=== PATIENT | female | born 1980 | race Caucasian/White ===

== ENCOUNTER 2019-06-14 11:27 | Inpatient (IN) | payer OTHER ==
[~2019-06-14] VITALS: Ht 160 cm; Wt 80.6 kg
[~2019-06-14 11:27] MED LIST: BISA-57 PO; HYDR-3601 PO; LEVO750T25 PO; PANT40TA4 PO
[2019-06-14 11:34] VITALS: Ht 160 cm; Wt 80.6 kg
[2019-06-14] MEDS ORDERED: KETOROLAC 15 MG INJ IV STA (13:18)
[2019-06-14] MEDS ORDERED: SOD CHLORIDE 0.9% 1,000 ML IV STA (13:18)
[2019-06-14] MEDS ORDERED: DOXYCYCLINE 100 MG TAB PO ONE (13:30)
--- NOTE | 2019-06-14 16:59 | QN ---
Documentation Comment pt seem amd examined TOMÁS CASTRO MD Jun 14, 2019 16:59
--- NOTE | 2019-06-14 17:10 | ERD ---
ER Documentation Chief Complaint Chief Complaint left sided flank pain at nephrostomy tube site. placement was may 22 HPI This is a 38-year-old woman complaining of continued left flank and back pain status post left nephrostomy tube placement performed 3 weeks ago at [facility]. At that time she was diagnosed with a very large left ureter calculus causing hydronephrosis and urinary obstruction. She was admitted and nephrostomy tube was placed and patient was discharged with analgesics and oral antibiotics, but since discharge she has been back again for flank pain and was discharged from the ER after that visit. She states she used her antibiotics as prescribed but got a call yesterday telling her that her urine cultures revealed multiple resistances and that she should be prescribed doxycycline. She came here for reevaluation and a prescription for doxycycline. Patient denies fevers or chills, no vomiting or diarrhea, no chest pain or shortness of breath, no hematuria. ROS All systems reviewed and are negative except as per history of present illness. Medications Home Meds No Active Prescriptions or Reported Meds Allergies Allergies: Coded Allergies: No Known Drug Allergies (Unverified Allergy, Unknown, 06/14/19) PMhx/Soc Recent left ureter calculus with hydronephrosis status post left nephrostomy tube placement History of Surgery: Yes (NEPHROSTOMY DRAIN) Anesthesia Reaction: No Hx Neurological Disorder: No Hx Respiratory Disorders: No Hx Cardiac Disorders: No Hx Psychiatric Problems: No Hx Miscellaneous Medical Probl: Yes (KIDNEY STONES) Hx Alcohol Use: No Hx Substance Use: No Hx Tobacco Use: No Smoking Status: Never smoker FmHx Family History: No diabetes Physical Exam Vitals Vital Signs Date Temp Pulse Resp B/P (MAP) Pulse Ox O2 O2 Flow FiO2 Time Delivery Rate 06/14/19 74 16 129/82 98 Room Air 15:54 (98) 06/14/19 98.0 83 83 141/92 99 11:34 (108) Physical Exam GENERAL: Well-developed, well-nourished, well-hydrated, moderate discomfort, afebrile CARDIAC: Regular rate and rhythm, no murmurs rubs or gallops LUNGS: Clear bilaterally no wheezing crackles or stridor ABDOMEN: Soft nontender, no guarding, no rigidity, no rebound, no psoas sign no obturator sign. Normoactive bowel sounds SKIN: Warm and dry to touch, granulation tissue present at the left flank stoma where the nephrostomy tube is placed with mild purulent discharge, no surrounding skin induration or erythema noted EXTREMITIES: No clubbing cyanosis or edema, calves are bilaterally symmetrical, no Homans sign, no popliteal cord sign. Distal pulses equal and bilateral PSYCH: Normal affect without agitation or irritability Result Diagram: 06/14/19 1332 06/14/19 1332 Results 24 hrs Laboratory Tests Test 06/14/19 13:32 06/14/19 13:34 06/14/19 13:45 06/14/19 13:47 White Blood Count 7.4 10^3/ul Red Blood Count 4.61 10^6/ul Hemoglobin 13.5 g/dl Hematocrit 40.5 % Mean Corpuscular 87.9 fl Volume Mean Corpuscular 29.3 pg Hemoglobin Mean Corpuscular 33.3 g/dl Hemoglobin Concent Red Cell 12.4 % Distribution Width Platelet Count 315 10^3/UL Mean Platelet 9.7 fl Volume Immature 0.300 % Granulocytes % Neutrophils % 59.7 % Lymphocytes % 31.2 % Monocytes % 7.2 % Eosinophils % 1.1 % Basophils % 0.5 % Nucleated Red Blood 0.0 /100WBC Cells % Immature 0.020 10^3/ul Granulocytes # Neutrophils # 4.4 10^3/ul Lymphocytes # 2.3 10^3/ul Monocytes # 0.5 10^3/ul Eosinophils # 0.1 10^3/ul Basophils # 0.0 10^3/ul Nucleated Red Blood 0.0 10^3/ul Cells # Sodium Level 138 mmol/L Potassium Level 3.8 mmol/L Chloride Level 104 mmol/L Carbon Dioxide 28 mmol/L Level Anion Gap 6 Blood Urea Nitrogen 13 mg/dl Creatinine 0.72 mg/dl Est Glomerular > 60 mL/min Filtrat Rate mL/min Glucose Level 91 mg/dl Calcium Level 9.4 mg/dl Total Bilirubin 0.3 mg/dl Direct Bilirubin 0.00 mg/dl Indirect Bilirubin 0.3 mg/dl Aspartate Amino 18 IU/L Transf (AST/SGOT) Alanine 19 IU/L Aminotransferase (A LT/SGPT) Alkaline 73 IU/L Phosphatase Total Protein 8.3 g/dl Albumin 4.5 g/dl Globulin 3.80 g/dl Albumin/Globulin 1.18 Ratio Lipase 78 U/L POC Venous Lactate 1.1 mmol/L Urine Color YELLOW Urine Clarity CLOUDY Urine pH 9.0 Urine Specific 1.010 Coleman Urine Ketones NEGATIVE mg/dL Urine Nitrite NEGATIVE mg/dL Urine Bilirubin NEGATIVE mg/dL Urine Urobilinogen NEGATIVE mg/dL Urine Leukocyte 1+ Curt/ul Esterase Urine Microscopic 17 /HPF RBC Urine Microscopic 11 /HPF WBC Urine Bacteria FEW /HPF Urine Mucus FEW /HPF Urine Hemoglobin 1+ mg/dL Urine Glucose NEGATIVE mg/dL Urine Total Protein 1+ mg/dl POC Beta HCG, NEGATIVE Qualitative Current Medications Medications Dose Sig/Jake Start Time Status Last (Trade) Ordered Route PRN Stop Time Admin Dose Reason Admin Sodium 1,000 ml @ Q1H STAT 06/14/19 DC 06/14/19 Chloride 1,000 mls/hr IV 13:18 06/14/19 13:54 14:17 Ketorolac 15 mg ONCE STAT 06/14/19 DC 06/14/19 Tromethamine IV 13:18 06/14/19 13:54 (Toradol) 13:20 Doxycycline 100 mg ONCE ONCE 06/14/19 DC 06/14/19 Hyclate PO 13:30 06/14/19 14:28 (Vibramycin) 13:31 Procedures/MDM IV line was established patient was placed on director index rhythm strip revea led a sinus rhythm at about 80 bpm with upright P and T waves. Patient was afebrile I administered 1 L normal saline IV, Toradol 15 mg IV, doxycycline 100 mg p.o. x1. CBC and electrolytes were normal, liver function tests were normal, urinalysis positive for infection. CT scan of the abdomen pelvis was performed,IMPRESSION: 1. A left nephrostomy tube is in place. There is a 0.9 x 1.5 cm calculus within the left proximal ureter at the UPJ measuring 500 HU. 2. Punctate nonobstructing calculi within the upper pole of the right kidney. X-ray Abdomen 1V Interpreted by me: Free Air: None Bowel Gas: Nonspecific Soft Tissue: Normal, left nephrostomy tube in place I spoke to urologist on-call who recommended inpatient management and agreed to ER plan, he agreed to consult the patient. Patient admitted to [facility] Departure Diagnosis: Primary Impression: Urinary obstruction Additional Impressions: Ureterolithiasis Acute UTI Condition: CARMEN Valencia MD Jun 14, 2019 17:10
[2019-06-14] MEDS: KETOROLAC 15 MG INJ IV PRN (17:22)
[2019-06-14] MEDS ORDERED: VANCOMYCIN IV PER PHARMACY XX SCH (17:30)
[2019-06-14] MEDS ORDERED: NACL 0.9% 3 ML SYG IV SCH (17:30)
[2019-06-14] MEDS ORDERED: ONDANSETRON 4 MG INJ IV PRN (17:30)
[2019-06-14] MEDS ORDERED: ACETAMINOPHEN 325 MG TAB PO PRN (17:30)
[2019-06-14] MEDS ORDERED: VANCOMYCIN 1.5 GM/NS 250 ML 250 ML IVPB SCH ×2 (18:30→20:00)
--- NOTE | 2019-06-14 18:34 | HP ---
DATE OF ADMISSION: 06/14/2019 REASON FOR ADMISSION: Left flank pain and left anterior abdominal pain. HISTORY OF PRESENTING ILLNESS: This is a 38-year-old female with past medical history of kidney ston es. The patient has history of hydronephrosis and left calculus which was 16 mm. The patient was se en at [facility] in 05/2019. At that time, the patient was seen by Dr. Mix and had lef t nephrostomy tube placed with stent tube placement. The patient was growing Proteus mirabilis in th e urine and was discharged home with Bactrim; however according to the patient since the discharge fr [facility], she has followed for different hospitals. She was having persistent lower ab dominal pain and also left flank pain. She was having intermittent chills at home. Tubing of the ne phrostomy tube was broken and they also called her from [facility] today that she has staph in her ur ine and was told to come into ER for further evaluation. The patient said that she was declined admi ssions to other hospitals since she did not have any insurance. On arrival to ED, the patient had a temperature of 98.0, pulse 74, respirations 16, blood pressure 129/82, saturating 98%. BUN and creat inine are within normal limit. White count of 7.4, hemoglobin 13.5, platelet count of 315. UA showe d 17 RBCs, 11 WBCs, few bacteria, 1+ protein. The patient also had a CT of the abdomen and pelvis th at showed left nephrostomy tube with 0.9 x 1.5 cm calculus with left proximal ureter measuring 500 pu nctuate nonobstructing calculi. Abdominal x-ray shows no free air, left upper quadrant catheter in p lace, probably overlying the left kidney. The patient was given Toradol, NS, Vibramycin and urology was consulted. PAST MEDICAL HISTORY: 1. History of kidney stones with history of left hydronephrosis and left 16 mm stone, status post ne phrostomy and stent placement. 2. History of Proteus UTI. ALLERGIES: NONE. MEDICATIONS TAKING AT HOME: None. SOCIAL HISTORY: Denies any history of smoking, alcohol or any drug use. FAMILY HISTORY: Noncontributory. REVIEW OF SYSTEMS: The patient has been having left flank pain for past few weeks, also some left an terior lower abdominal pain, some intermittent chills. Denies any hematuria. Drainage through the n ephrostomy is less and it has been cloudy. Denies any right-sided flank pain. Denies any chest pain , any shortness of breath. Denies any headache, any blurry vision. Denies any focal neurological de ficits. PHYSICAL EXAMINATION: VITAL SIGNS: Current temperature 98.0, pulse 83, respirations 16, blood pressure 141/92, saturating 99%. GENERAL: The patient is awake, alert, oriented, does not appear to be in any acute distress. HEENT: Pupils are equal, round, reactive to light. NECK: Supple. No JVD. HEART: Regular rate and rhythm. LUNGS: Clear to auscultation bilaterally. ABDOMEN: Soft. Some tenderness in the left lower quadrant. The patient has left flank tenderness. Nephrostomy bag in place with tubing part is broken. Some purulent discharge is noted in the nephrostomy tube. LABORATORY DATA: BMP within normal limit with BUN of 13, creatinine 0.72. White count of 7.4, hemog lobin 13.5, platelet count of 315. UA shows 11 WBC, 17 RBCs. IMAGING: CT of the abdomen and pelvis shows left nephrostomy tube in place with 0.9 x 1.5 cm calculu s at the left proximal ureter at the UPJ junction, punctate nonobstructing calculi with the upper martin e of the right kidney. ASSESSMENT AND PLAN: This is a 38-year-old female who presented with: 1. Recurrent urinary tract infection. The patient has history of hydronephrosis on the left side, s tatus post nephrostomy tube placement and stent in place. New UA is consistent with urinary tract in fection and the patient also was growing Staph in the urine from [facility] concerning for i nfection. 2. History of kidney stones. 3. Right side kidney stone. 4. Obesity. PLAN: At this period of time, the patient will be admitted to med/surg. The patient will be on pain control, IV antibiotics. We will also her vancomycin due to staph. We will send for urine culture, blood cultures. Again, ID will be consulted. Dr. Mosley has already been consulted. The patient w ill likely need new nephrostomy. Rest of the treatment will depend on the patient's hospitalization course. Dictated By: TOMÁS BLANTON Conf#: [id number] [facility]#: [id number] CC: BRANDEN MOSLEY MD; CARMEN VASQUEZ MD;*[facility]*
[2019-06-14 19:00] VITALS: BP 119/64; PULSE 66; RESP 16
--- NOTE | 2019-06-14 19:37 | CONS ---
DATE OF ADMISSION: 06/14/2019 DATE OF CONSULTATION: 06/14/2019 TYPE OF CONSULTATION: Infectious disease. REASON FOR CONSULTATION: Antibiotic management. HISTORY OF PRESENT ILLNESS: Kelly Mann is a 38-year-old female who comes in with left flank verona n in the nephrostomy tube site which was placed on 05/22/2019. The patient complains of left flank a nd back pain status post left nephrostomy tube placement performed at [facility] on 05/22/20 19. She was discharged with a very large left ureteral calculus causing hydronephrosis and urinary o bstruction. Since her discharge, she has been back again for flank pain and was discharged from the ER as well. She got a call from her physician telling her that her urine culture revealed multiple r esistant organisms and that she should be prescribed doxycycline. She came to the emergency room for reevaluation and a prescription for doxycycline. She has no fever or chills. PAST MEDICAL HISTORY: As noted, recent left ureteral calculus with hydronephrosis, status post left nephrostomy tube placement. PAST MEDICAL HISTORY: As outlined. FAMILY HISTORY: Noncontributory. SOCIAL HISTORY: She does not smoke, drink or abuse drugs. ALLERGIES: NONE TO PENICILLIN, SULFA OR FOODS. MEDICATIONS: Per chart. REVIEW OF SYSTEMS: Noncontributory. PHYSICAL EXAMINATION: GENERAL: She is a well-developed, well-nourished, well-hydrated female who is moderately uncomfortab le, in no acute distress. VITAL SIGNS: Stable. She is afebrile. SKIN: Without generalized rash. She is warm to the touch. HEENT: Within normal limits. NECK: Supple. LYMPH NODES: None palpable. CHEST: Decreased breath sounds at the bases. HEART: Without murmur or gallop. ABDOMEN: Soft, nontender, without organosplenomegaly or masses. She has granulation tissue at the l eft flank stoma where the nephrostomy tube is located with mild purulent drainage or discharge. She has no skin or induration or erythema. EXTREMITIES: Without cyanosis, clubbing or edema. RECTAL AND GENITAL: Deferred. NEUROLOGICAL: No focal neurological abnormality. HOSPITAL COURSE: White count 7.4 with 60% neutrophils, H and H 13.5 and 40.5, platelet count 315,000 . BUN and creatinine 13/0.72, glucose 91. Her urine is negative for nitrite, has 1+ leukocyte hang ase and 11 white cells per high-power field. The patient was placed on doxycycline. CT scan of the abdomen showed left nephrostomy tube in place, calculus in place. X-ray of the abdomen is normal wit h left nephrostomy tube in place. IMPRESSION AND PLAN: In conclusion, the patient has urinary obstruction. We should probably repeat urine culture if not done. The patient was placed on doxycycline. Blood cultures and urine cultures were ordered. I will dictate my findings to Dr. Castro. Dictated By: CRESCENCIO HENNESSY MD, JD/NTS Conf#: [id number] DID#: [id number] CC: TOMÁS CASTRO; BRANDEN MOSLEY MD;*[facility]*
--- NOTE | 2019-06-14 20:35 | CONS ---
Assessment/Plan Assessment/Plan Hospital Course (Demo Recall) This is a 38-year-old female who presented to [facility] on May 22 with left flank pain underwent a CT scan and that showed a 16 mm obstructing stone in the proximal left ureter causing mild left hydronephrosis the patient had a left nephrostomy tube put in and patient was discharged home and instructed to follow-up with her primary care doctor who will refer her to a urologist the patient came back to the emergency room later on at [facility] because the bag from the nephrostomy was leaking and they told her the x-ray department is closed so she went home she presented to the emergency room at [facility] today and she was told by the staff at [facility] that they received a urine culture on her and that she needs to be placed on doxycycline and therefore she came in to the emergency room at [facility] the patient is very uncomfortable with the nephrostomy tube and upon admission here as she underwent the CT scan again and that showed a stone in the upper ureter about 16 mm and a left nephrostomy tube in place. Patient s tates that she did have kidney stones in the past and she passed them but she never recovered them and she did not have a CT scan at that time and what they did was a renal ultrasound which could very easily miss a stone in the ureter. It will only show stones in the kidney. CT scan done here today showed a 9 x 16 mm stone in the proximal left ureter in addition to the left nephrostomy tube. Impression: Large left upper ureteral stone with obstruction. Patient does have a left nephrostomy tube. Plan: We will try to do cystoscopy, left ureteroscopy, if we are able to reach the stone we will do laser lithotripsy and then insert a JJ stent. The stone is too large and may need more than one treatment. We will put a stent at the end and may remove the nephrostomy tube after that. I did explain all the procedure to the patient and to her boyfriend who was at her bedside in the emergency r oom. I answered all of their questions and she is agreeable to proceed Consultation Date/Type/Reason Admit Date/Time Jun 14, 2019 at 15:19 Date of Consultation: Jun 14, 2019 Type of Consult Urology Reason for Consultation Left upper ureteral stone Requesting Provider: BRITNEY JOHNSON Date/Time of Note DATE: 06/14/19 TIME: 20:23 Hx of Present Illness This is a 38-year-old female who presented to [facility] on May 22 with left flank pain underwent a CT scan and that showed a 16 mm obstructing stone in the proximal left ureter causing mild left hydronephrosis the patient had a left nephrostomy tube put in and patient was discharged home and instructed to follow-up with her primary care doctor who will refer her to a urologist the patient came back to the emergency room later on at [facility] because the bag from the nephrostomy was leaking and they told her the x-ray department is closed so she went home she presented to the emergency room at [facility] today and she was told by the staff at [facility] that they received a urine culture on her and that she needs to be placed on doxycycline and therefore she came in to the emergency room at [facility] the patient is very uncomfortable with the nephrostomy tube and upon admission here as she underwent the CT scan again and that showed a stone in the upper ureter about 16 mm and a left nephrostomy tube in place. Patient states that she did have kidney stones in the past and she passed them but she never recovered them and she did not have a CT scan at that time and what they did was a renal ultrasound which could very easily miss a stone in the ureter. It will only show stones in the kidney. Constitutional: no complaints Eyes: no complaints ENT: no complaints Respiratory: no complaints; No shortness of breath Cardiovascular: no complaints; No chest pain Gastrointestinal: no complaints; No nausea, No vomiting Genitourinary: dysuria, flank pain (Left side) Musculoskeletal: no complaints Skin: no complaints Neurologic: no complaints Endocrine: no complaints Lymphatic: no complaints Past Medical History Medical History: no pertinent history Home Meds No Active Prescriptions or Reported Meds Medications Current Medications Sodium Chloride 1,000 ml @ 100 mls/hr Q10H IV ; Start 06/14/19 at 17:05 IV Flush (NS 3 ml) 3 ml PER PROTOCOL IV ; Start 06/14/19 at 17:30 Ondansetron HCl (Zofran Inj) 4 mg Q6H PRN IV NAUSEA/VOMITING; Start 06/14/19 at 17:30 Acetaminophen (Tylenol Tab) 650 mg Q6H PRN PO .PAIN 1-3 OR TEMP; Start 06/14/19 at 17:30 Acetaminophen/ Hydrocodone Bitart (Almira (5/325)) 1 tab Q6H PRN PO .MOD PAIN 4- 6; Start 06/14/19 at 17:30 Pantoprazole (Protonix Tab) 40 mg DAILY@06 PO ; Start 06/15/19 at 06:00 Ketorolac Tromethamine (Toradol) 15 mg Q6 PRN IV PAIN Last administered on 06/14/19at 17:22; Admin Dose 15 MG; Start 06/14/19 at 17:30; Stop 06/17/19 at 17:29 Cefepime HCl 50 ml @ 100 mls/hr Q12 IVPB ; Start 06/14/19 at 21:00 Vancomycin HCl (Vanco Iv Per Pharmacy) VANCOMYCIN PER PHARMACY PER PROTOCOL XX ; Start 06/14/19 at 17:30 Vancomycin/Sodium Chloride 250 ml @ 83.333 mls/ hr NOW IVPB ; Start 06/14/19 at 20:00; Stop 06/14/19 at 23:00 Allergies: Coded Allergies: No Known Drug Allergies (Unverified Allergy, Unknown, 06/14/19) Past Surgical History Past Surgical Hx: other (Surgery for retinal detachment, breast implants which were later on removed, tummy tuck, tubal ligation.) Social History Alcohol Use: occasionally Smoking Status: Never smoker Drug Use: none Other Social History She is a 4, para 3, 3 normal deliveries and 1 . Exam/Review of Systems Exam Vitals Vital Signs Date Temp Pulse Resp B/P (MAP) Pulse Ox O2 O2 Flow FiO2 Time Delivery Rate 06/14/19 98.0 66 16 119/64 98 Room Air 19:00 (82) Constitutional: alert Psych: no complaints Head: normocephalic Eyes: nl conjunctiva ENMT: nl external ears & nose Neck: supple Respiratory: normal air movement; No wheezing Cardiovascular: No jugular venous distention (JVD) Gastrointestinal: soft, surgical scars Genitourinary - Female: CVA tenderness (Left side. She does have left nephrostomy tube.) Musculoskeletal: nl extremities to inspection Extremities: No calf tenderness Neurological: nl mental status Skin: other (Has tattoos) Results Result Diagram: 06/14/19 1332 06/14/19 1332 Results 24hrs Laboratory Tests Test 06/14/19 13:32 06/14/19 13:34 06/14/19 13:45 06/14/19 13:47 White Blood Count 7.4 Red Blood Count 4.61 Hemoglobin 13.5 Hematocrit 40.5 Mean Corpuscular Volume 87.9 Mean Corpuscular 29.3 Hemoglobin Mean Corpuscular 33.3 Hemoglobin Concent Red Cell Distribution 12.4 Width Platelet Count 315 Mean Platelet Volume 9.7 Immature Granulocytes % 0.300 Neutrophils % 59.7 Lymphocytes % 31.2 Monocytes % 7.2 Eosinophils % 1.1 Basophils % 0.5 Nucleated Red Blood 0.0 Cells % Immature Granulocytes # 0.020 Neutrophils # 4.4 Lymphocytes # 2.3 Monocytes # 0.5 Eosinophils # 0.1 Basophils # 0.0 Nucleated Red Blood 0.0 Cells # Sodium Level 138 Potassium Level 3.8 Chloride Level 104 Carbon Dioxide Level 28 Anion Gap 6 Blood Urea Nitrogen 13 Creatinine 0.72 Est Glomerular Filtrat > 60 Rate mL/min Glucose Level 91 Calcium Level 9.4 Total Bilirubin 0.3 Direct Bilirubin 0.00 Indirect Bilirubin 0.3 Aspartate Amino 18 Transf (AST/SGOT) Alanine 19 Aminotransferase (ALT/SG PT) Alkaline Phosphatase 73 Total Protein 8.3 H Albumin 4.5 Globulin 3.80 H Albumin/Globulin Ratio 1.18 Lipase 78 POC Venous Lactate 1.1 Urine Color YELLOW Urine Clarity CLOUDY A Urine pH 9.0 Urine Specific Plessis 1.010 Urine Ketones NEGATIVE Urine Nitrite NEGATIVE Urine Bilirubin NEGATIVE Urine Urobilinogen NEGATIVE Urine Leukocyte Esterase 1+ H Urine Microscopic RBC 17 H Urine Microscopic WBC 11 H Urine Bacteria FEW A Urine Mucus FEW A Urine Hemoglobin 1+ H Urine Glucose NEGATIVE Urine Total Protein 1+ H POC Beta HCG, NEGATIVE Qualitative Imaging Imaging CT scan of the abdomen and pelvis: 1. A left nephrostomy tube is in place. There is a 0.9 x 1.5 cm calculus within the left proximal ureter at the UPJ measuring 500 HU. 2. Punctate nonobstructing calculi within the upper pole of the right kidney. Medications Medication Current Medications Sodium Chloride 1,000 ml @ 100 mls/hr Q10H IV ; Start 06/14/19 at 17:05 IV Flush (NS 3 ml) 3 ml PER PROTOCOL IV ; Start 06/14/19 at 17:30 Ondansetron HCl (Zofran Inj) 4 mg Q6H PRN IV NAUSEA/VOMITING; Start 06/14/19 at 17:30 Acetaminophen (Tylenol Tab) 650 mg Q6H PRN PO .PAIN 1-3 OR TEMP; Start 06/14/19 at 17:30 Acetaminophen/ Hydrocodone Bitart (Almira (5/325)) 1 tab Q6H PRN PO .MOD PAIN 4- 6; Start 06/14/19 at 17:30 Pantoprazole (Protonix Tab) 40 mg DAILY@06 PO ; Start 06/15/19 at 06:00 Ketorolac Tromethamine (Toradol) 15 mg Q6 PRN IV PAIN Last administered on 06/14/19at 17:22; Admin Dose 15 MG; Start 06/14/19 at 17:30; Stop 06/17/19 at 17:29 Cefepime HCl 50 ml @ 100 mls/hr Q12 IVPB ; Start 06/14/19 at 21:00 Vancomycin HCl (Vanco Iv Per Pharmacy) VANCOMYCIN PER PHARMACY PER PROTOCOL XX ; Start 06/14/19 at 17:30 Vancomycin/Sodium Chloride 250 ml @ 83.333 mls/ hr NOW IVPB ; Start 06/14/19 at 20:00; Stop 06/14/19 at 23:00 BRANDEN MOSLEY MD Jun 14, 2019 20:35
[2019-06-14] MEDS: SOD CHLORIDE 0.9% 1,000 ML IV SCH (21:51)
[2019-06-14] MEDS: CEFEPIME 1GM/50 ML (PMX) 50 ML IVPB SCH (21:52)
[2019-06-15] VITALS (22 sets, daily range): BP systolic 107–151; BP diastolic 60–106; PULSE 64–102; RESP 14–19
[2019-06-15] MEDS: SOD CHLORIDE 0.9% 1,000 ML IV SCH ×2 (03:05→18:01)
[2019-06-15] MEDS: KETOROLAC 15 MG INJ IV PRN ×2 (03:36→21:07)
[2019-06-15] MEDS: PANTOPRAZOLE (EC) 40 MG TAB PO SCH (05:40)
[2019-06-15] MEDS: CEFEPIME 1GM/50 ML (PMX) 50 ML IVPB SCH ×2 (08:39→21:06)
--- NOTE | 2019-06-15 08:56 | PREAC ---
Date/Time of Note Date/Time of Note DATE: 06/15/19 TIME: 08:55 Anesthesia Eval and Record Evaluation Time Pre-Procedure Interview DATE: 06/15/19 TIME: 08:55 Age 38 Sex female NPO: 8 hrs Preoperative diagnosis kidney stone Planned procedure laser lithotrypsy Past Medical History Past Medical History: Includes GI: Obesity Surgery & Anesthesia Issues No known issue Meds Anticoagulation: No Beta Henrique within 24 hr: No Reason Beta Henrique not given: Pt. not on B-Henrique No Active Prescriptions or Reported Meds Current Medications Sodium Chloride 1,000 ml @ 100 mls/hr Q10H IV Last administered on 06/14/19at 21:51; Admin Dose 100 MLS/HR; Start 06/14/19 at 17:05 IV Flush (NS 3 ml) 3 ml PER PROTOCOL IV ; Start 06/14/19 at 17:30 Ondansetron HCl (Zofran Inj) 4 mg Q6H PRN IV NAUSEA/VOMITING; Start 06/14/19 at 17:30 Acetaminophen (Tylenol Tab) 650 mg Q6H PRN PO .PAIN 1-3 OR TEMP; Start 06/14/19 at 17:30 Acetaminophen/ Hydrocodone Bitart ([place] (5/325)) 1 tab Q6H PRN PO .MOD PAIN 4- 6; Start 06/14/19 at 17:30 Pantoprazole (Protonix Tab) 40 mg DAILY@06 PO ; Start 06/15/19 at 06:00 Ketorolac Tromethamine (Toradol) 15 mg Q6 PRN IV PAIN Last administered on 06/15/19at 03:36; Admin Dose 15 MG; Start 06/14/19 at 17:30; Stop 06/17/19 at 17:29 Cefepime HCl 50 ml @ 100 mls/hr Q12 IVPB Last administered on 06/15/19at 08:39; Admin Dose 100 MLS/HR; Start 06/14/19 at 21:00 Vancomycin HCl (Vanco Iv Per Pharmacy) VANCOMYCIN PER PHARMACY PER PROTOCOL XX ; Start 06/14/19 at 17:30 Vancomycin/Sodium Chloride 250 ml @ 83.333 mls/ hr Q12 IVPB ; Start 06/15/19 at 11:00 Meds reviewed: Yes Allergies Coded Allergies: No Known Drug Allergies (Unverified Allergy, Unknown, 06/14/19) Allergies Reviewed: Yes Labs/Studies Labs Reviewed: Reviewed by anesthesiologist Result Diagram: 06/15/19 0438 06/15/19 0438 Laboratory Tests 06/15/19 04:38 test: N/A Pre-procedure Exam Last vitals Vital Signs Date Temp Pulse Resp B/P (MAP) Pulse Ox O2 O2 Flow FiO2 Time Delivery Rate 06/15/19 98.0 70 18 116/63 99 Room Air 07:33 (80) Airway: Adequate mouth opening, Adequate thyromental dist Mallampati: Mallampati II Teeth: Normal Lung: Normal Heart: Normal ASA Physical Status ASA physical status: 2 Emergency: None Planned Anesthetic General/MAC: ETT Pre-operative Attestations Prior to commencing anesthesia and surgery, the patient was re-evaluated, there was verification of: *The patient's identity *The results of appropriate recent lab work and preoperative vital signs *The above evaluation not changing prior to induction *Anesthetic plan, risk benefits, alternative and complications discussed with patient/family; questions answered; patient/family understands, accepts and wishes to proceed. CARLOS QUINTANILLA Jun 15, 2019 08:56
--- NOTE | 2019-06-15 08:57 | HPN ---
Date/Time of Note Date/Time of Note DATE: 06/15/19 TIME: 08:57 Interval H&P Admission Note Pt. seen H&P reviewed: No system changes BRANDEN MOSLEY MD Jun 15, 2019 08:57
[2019-06-15] MEDS ORDERED: DIPHENHYDRAMINE 50 MG INJ IV PRN (09:00)
[2019-06-15] MEDS ORDERED: ONDANSETRON 4 MG INJ IV PRN (09:00)
[2019-06-15] MEDS ORDERED: MEPERIDINE 25 MG INJ IV PRN (09:00)
[2019-06-15] MEDS ORDERED: METOCLOPRAMIDE 10 MG INJ IV PRN (09:00)
[2019-06-15] MEDS ORDERED: HYDROmorphONE 1 MG/5 ML IV SYRINGE IV PRN ×3 (09:00)
[2019-06-15] MEDS ORDERED: FENTAnyl 50 MCG/ML VIAL IV PRN ×2 (09:00)
[2019-06-15] MEDS ORDERED: ALBUTEROL 0.083% (NEB) 2.5 MG/3 ML AMP HHN PRN (09:00)
[2019-06-15] MEDS ORDERED: GLYCOPYRROLATE 0.4 MG INJ ONE (09:07)
[2019-06-15] MEDS ORDERED: FENTAnyl 50 MCG/ML VIAL ONE (09:07)
[2019-06-15] MEDS ORDERED: SUGAMMADEX SODIUM 200 MG/2 ML VIAL IV ONE (09:31)
[2019-06-15] MEDS ORDERED: PROPOFOL 20 ML ONE (09:31)
[2019-06-15] MEDS ORDERED: ROCURONIUM 50 MG INJ ONE (09:31)
[2019-06-15] MEDS ORDERED: SUCCINYLCHOLINE CHLORIDE 100 MG/5 ML SYG IV ONE (09:31)
[2019-06-15] MEDS ORDERED: LIDOCAINE 100 MG SYRINGE ONE (09:31)
[2019-06-15] MEDS ORDERED: VANCOMYCIN 1.25 GM/NS 250 ML 250 ML IVPB SCH (11:00)
--- NOTE | 2019-06-15 11:36 | OPR ---
Date/Time of Note Date/Time of Note DATE: 06/15/19 TIME: 11:26 Operative Report Procedure Date: Jun 15, 2019 Preoperative Diagnosis Left upper ureteral stone with obstruction. She does have a left nephrostomy tube. Postoperative Diagnosis Same, the stone is at the ureteropelvic junction. Operation/Procedure Performed Cystoscopy, left ureteral pyeloscopy, laser lithotripsy, removal of left nephrostomy tube, insertion of left ureteral JJ stent. 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 Procedure Description The patient was brought to the operating room and given general anesthesia. Timeout was done and the patient was identified by her name, birthdate, the procedure, and the site of the procedure. Patient was given her dose of cefepime at the start of the procedure. She was positioned in the lithotomy position. The genital area was then prepped and draped in the usual sterile manner. #21 Sudanese cystoscope sheath was introduced into the bladder and urine collected for culture and sensitivity. The left ureteral orifice was then cannulated with a 5 Sudanese open ended and then a 0.035 zip wire was passed into the open ended and advanced to the kidney under fluoroscopic control. The wire did pass into the kidney to the side of the stone. Then the cystoscope was removed leaving the zip wire in place. Then I used a dual-lumen ureteral catheter and passed it up to the level of the stone and through the second working channel of the dual-lumen I inserted a 0.035 sensor wire. The dual- lumen was removed and the sensor wire was used as a safety wire and the zip wire was used to advance an access sheath 11 x 13 mm diameter and 28 cm long. That was advanced up to the level of the upper ureter. Then I used the digital flexible ureteroscope and advanced it to the level of the stone. The stone was visualized and then broken using the holmium laser. The stone fragments were basketed out of the kidney and the ureter one piece at the time. There were some pieces that were obscured by the presence of the nephrostomy tube. Therefore I went ahead and removed the nephrostomy tube and re-scrubbed. And then continued the ureteral pyeloscopy and extraction of all the remaining stone fragments. Once the kidney was clear of stone fragments as well as ureter the access sheath was removed. Then I reintroduced the cystoscope on the sensor wire. I inserted a 22 cm long 6 Sudanese JJ stent and had its proximal end curled into the kidney and the distal end curled into the bladder. The distal end is attached to a string that was brought out through the urethra and taped to her right groin with 2 pieces of Tegaderm. The patient tolerated the procedure well and was transferred to the recovery room in a stable and satisfactory condition. BRANDEN MOSLEY MD Jun 15, 2019 11:35
--- NOTE | 2019-06-15 13:29 | PN ---
Date/Time of Note Date/Time of Note DATE: 06/15/19 TIME: 13:29 Assessment/Plan VTE Prophylaxis Risk score (from [facility] [place])>0 risk: 2 SCD applied (from [facility] [place]): Yes SCD contraindicated: low risk/ambulating Pharmacological prophylaxis: NA/contraindicated Pharm contraindication: low risk/ambulating Lines/Catheters IV Catheter Type (from [facility]): Peripheral IV Assessment/Plan Hospital Course 1. Recurrent urinary tract infection. The patient has history of hydronephrosis on the left side, status post nephrostomy tube placement and stent in place. New UA is consistent with urinary tract infection and the patient also was growing Staph in the urine from [facility] concerning for infection. 2. History of kidney stones. 3. Right side kidney stone. 4. Obesity. Assessment/Plan -d/c planning tomorrow -s/p Nephrostomy tube removal -potassium supplement -GI proph. Protonix DVT proph. Ambulating -med/surg. -c/w pain control, -c/w IV antibiotics. -c/w vancomycin due to staph. - urine culture, blood cultures. - ID will be consulted. - Dr. Thorpe urology seen Result Diagram: 06/15/19 0438 06/15/19 0438 Results 24hrs Laboratory Tests Test 06/14/19 13:32 06/14/19 13:34 06/14/19 13:45 06/14/19 13:47 White Blood Count 7.4 Red Blood Count 4.61 Hemoglobin 13.5 Hematocrit 40.5 Mean Corpuscular Volume 87.9 Mean Corpuscular 29.3 Hemoglobin Mean Corpuscular 33.3 Hemoglobin Concent Red Cell Distribution 12.4 Width Platelet Count 315 Mean Platelet Volume 9.7 Immature Granulocytes % 0.300 Neutrophils % 59.7 Lymphocytes % 31.2 Monocytes % 7.2 Eosinophils % 1.1 Basophils % 0.5 Nucleated Red Blood 0.0 Cells % Immature Granulocytes # 0.020 Neutrophils # 4.4 Lymphocytes # 2.3 Monocytes # 0.5 Eosinophils # 0.1 Basophils # 0.0 Nucleated Red Blood 0.0 Cells # Sodium Level 138 Potassium Level 3.8 Chloride Level 104 Carbon Dioxide Level 28 Anion Gap 6 Blood Urea Nitrogen 13 Creatinine 0.72 Est Glomerular Filtrat > 60 Rate mL/min Glucose Level 91 Calcium Level 9.4 Total Bilirubin 0.3 Direct Bilirubin 0.00 Indirect Bilirubin 0.3 Aspartate Amino 18 Transf (AST/SGOT) Alanine 19 Aminotransferase (ALT/S GPT) Alkaline Phosphatase 73 Total Protein 8.3 H Albumin 4.5 Globulin 3.80 H Albumin/Globulin Ratio 1.18 Lipase 78 POC Venous Lactate 1.1 Urine Color YELLOW Urine Clarity CLOUDY A Urine pH 9.0 Urine Specific [place] 1.010 Urine Ketones NEGATIVE Urine Nitrite NEGATIVE Urine Bilirubin NEGATIVE Urine Urobilinogen NEGATIVE Urine Leukocyte 1+ H Esterase Urine Microscopic RBC 17 H Urine Microscopic WBC 11 H Urine Bacteria FEW A Urine Mucus FEW A Urine Hemoglobin 1+ H Urine Glucose NEGATIVE Urine Total Protein 1+ H POC Beta HCG, NEGATIVE Qualitative Test 06/14/19 18:32 06/15/19 04:38 Prothrombin Time 12.5 Prothrombin Time Ratio 1.0 INR International 0.92 Normalized Ratio Activated 31.4 Partial Thromboplast Time White Blood Count 7.6 Red Blood Count 4.22 Hemoglobin 12.1 Hematocrit 37.9 Mean Corpuscular Volume 89.8 Mean Corpuscular 28.7 L Hemoglobin Mean Corpuscular 31.9 L Hemoglobin Concent Red Cell Distribution 12.7 Width Platelet Count 263 Mean Platelet Volume 10.3 Immature Granulocytes % 0.400 Neutrophils % 59.9 Lymphocytes % 29.3 Monocytes % 8.2 Eosinophils % 1.7 Basophils % 0.5 Nucleated Red Blood 0.0 Cells % Immature Granulocytes # 0.030 Neutrophils # 4.5 Lymphocytes # 2.2 Monocytes # 0.6 Eosinophils # 0.1 Basophils # 0.0 Nucleated Red Blood 0.0 Cells # Sodium Level 139 Potassium Level 3.4 L Chloride Level 107 Carbon Dioxide Level 26 Anion Gap 6 Blood Urea Nitrogen 15 Creatinine 0.74 Est Glomerular Filtrat > 60 Rate mL/min Glucose Level 90 Calcium Level 8.7 Phosphorus Level 3.6 Magnesium Level 1.9 Total Bilirubin 0.3 Direct Bilirubin 0.00 Indirect Bilirubin 0.3 Aspartate Amino 18 Transf (AST/SGOT) Alanine 26 Aminotransferase (ALT/S GPT) Alkaline Phosphatase 75 Total Protein 6.9 # Albumin 3.7 Globulin 3.20 Albumin/Globulin Ratio 1.15 Subjective 24 Hr Interval Summary ENT: pain Exam/Review of Systems Exam Vitals Vital Signs Date Temp Pulse Resp B/P (MAP) Pulse Ox O2 O2 Flow FiO2 Time Delivery Rate 06/15/19 98.2 79 18 145/85 99 Room Air 12:36 (105) 06/15/19 6.0 11:10 Intake and Output 06/14/19 06/14/19 06/15/19 1515:00 23:00 07:00 IntakeIntake Total 1050 ml 650 ml OutputOutput Total 350 ml BalanceBalance 1050 ml 300 ml Exam No acute distress, no events overnight. Eyes: anicteric, EOM's intact, no pallor Nose: no rhinorrhea Neck: supple, no thyromegaly, no carotid bruits Lungs: clear bilaterally, decreased. CVS: regular rate and rhythm, no murmurs Abdomen: soft, bowel sounds present, no hepatosplenomegally, no masses, no rebound or guarding. Rectal: differed. External genitalia: no lesions. Extremities: no edema, DP pulses are palpable Neuro: alert and oriented x 3 Gait: normal Motor strength: 5+/5+ Sensory exam: normal Deep tendon reflexes: normal, Babinsky reflexes are absent bilaterally Skin: left flank hole Results Results 24hrs Laboratory Tests Test 06/14/19 13:32 06/14/19 13:34 06/14/19 13:45 06/14/19 13:47 White Blood Count 7.4 Red Blood Count 4.61 Hemoglobin 13.5 Hematocrit 40.5 Mean Corpuscular Volume 87.9 Mean Corpuscular 29.3 Hemoglobin Mean Corpuscular 33.3 Hemoglobin Concent Red Cell Distribution 12.4 Width Platelet Count 315 Mean Platelet Volume 9.7 Immature Granulocytes % 0.300 Neutrophils % 59.7 Lymphocytes % 31.2 Monocytes % 7.2 Eosinophils % 1.1 Basophils % 0.5 Nucleated Red Blood 0.0 Cells % Immature Granulocytes # 0.020 Neutrophils # 4.4 Lymphocytes # 2.3 Monocytes # 0.5 Eosinophils # 0.1 Basophils # 0.0 Nucleated Red Blood 0.0 Cells # Sodium Level 138 Potassium Level 3.8 Chloride Level 104 Carbon Dioxide Level 28 Anion Gap 6 Blood Urea Nitrogen 13 Creatinine 0.72 Est Glomerular Filtrat > 60 Rate mL/min Glucose Level 91 Calcium Level 9.4 Total Bilirubin 0.3 Direct Bilirubin 0.00 Indirect Bilirubin 0.3 Aspartate Amino 18 Transf (AST/SGOT) Alanine 19 Aminotransferase (ALT/S GPT) Alkaline Phosphatase 73 Total Protein 8.3 H Albumin 4.5 Globulin 3.80 H Albumin/Globulin Ratio 1.18 Lipase 78 POC Venous Lactate 1.1 Urine Color YELLOW Urine Clarity CLOUDY A Urine pH 9.0 Urine Specific [place] 1.010 Urine Ketones NEGATIVE Urine Nitrite NEGATIVE Urine Bilirubin NEGATIVE Urine Urobilinogen NEGATIVE Urine Leukocyte 1+ H Esterase Urine Microscopic RBC 17 H Urine Microscopic WBC 11 H Urine Bacteria FEW A Urine Mucus FEW A Urine Hemoglobin 1+ H Urine Glucose NEGATIVE Urine Total Protein 1+ H POC Beta HCG, NEGATIVE Qualitative Test 06/14/19 18:32 06/15/19 04:38 Prothrombin Time 12.5 Prothrombin Time Ratio 1.0 INR International 0.92 Normalized Ratio Activated 31.4 Partial Thromboplast Time White Blood Count 7.6 Red Blood Count 4.22 Hemoglobin 12.1 Hematocrit 37.9 Mean Corpuscular Volume 89.8 Mean Corpuscular 28.7 L Hemoglobin Mean Corpuscular 31.9 L Hemoglobin Concent Red Cell Distribution 12.7 Width Platelet Count 263 Mean Platelet Volume 10.3 Immature Granulocytes % 0.400 Neutrophils % 59.9 Lymphocytes % 29.3 Monocytes % 8.2 Eosinophils % 1.7 Basophils % 0.5 Nucleated Red Blood 0.0 Cells % Immature Granulocytes # 0.030 Neutrophils # 4.5 Lymphocytes # 2.2 Monocytes # 0.6 Eosinophils # 0.1 Basophils # 0.0 Nucleated Red Blood 0.0 Cells # Sodium Level 139 Potassium Level 3.4 L Chloride Level 107 Carbon Dioxide Level 26 Anion Gap 6 Blood Urea Nitrogen 15 Creatinine 0.74 Est Glomerular Filtrat > 60 Rate mL/min Glucose Level 90 Calcium Level 8.7 Phosphorus Level 3.6 Magnesium Level 1.9 Total Bilirubin 0.3 Direct Bilirubin 0.00 Indirect Bilirubin 0.3 Aspartate Amino 18 Transf (AST/SGOT) Alanine 26 Aminotransferase (ALT/S GPT) Alkaline Phosphatase 75 Total Protein 6.9 # Albumin 3.7 Globulin 3.20 Albumin/Globulin Ratio 1.15 Medications Medication Current Medications Sodium Chloride 1,000 ml @ 100 mls/hr Q10H IV Last administered on 06/14/19at 21:51; Admin Dose 100 MLS/HR; Start 06/14/19 at 17:05 IV Flush (NS 3 ml) 3 ml PER PROTOCOL IV ; Start 06/14/19 at 17:30 Ondansetron HCl (Zofran Inj) 4 mg Q6H PRN IV NAUSEA/VOMITING; Start 06/14/19 at 17:30 Acetaminophen (Tylenol Tab) 650 mg Q6H PRN PO .PAIN 1-3 OR TEMP; Start 06/14/19 at 17:30 Acetaminophen/ Hydrocodone Bitart ([place] (5/325)) 1 tab Q6H PRN PO .MOD PAIN 4- 6; Start 06/14/19 at 17:30 Pantoprazole (Protonix Tab) 40 mg DAILY@06 PO ; Start 06/15/19 at 06:00 Ketorolac Tromethamine (Toradol) 15 mg Q6 PRN IV PAIN Last administered on 06/15/19at 03:36; Admin Dose 15 MG; Start 06/14/19 at 17:30; Stop 06/17/19 at 17:29 Cefepime HCl 50 ml @ 100 mls/hr Q12 IVPB Last administered on 06/15/19at 08:39; Admin Dose 100 MLS/HR; Start 06/14/19 at 21:00 Vancomycin HCl (Vanco Iv Per Pharmacy) VANCOMYCIN PER PHARMACY PER PROTOCOL XX ; Start 06/14/19 at 17:30 Vancomycin/Sodium Chloride 250 ml @ 83.333 mls/ hr Q12 IVPB Last administered on 06/15/19at 11:59; Admin Dose 83.333 MLS/HR; Start 06/15/19 at 11:00 Hydromorphone HCl (Dilaudid) 0.2 mg PACU PRN IV MILD PAIN 1-3; Start 06/15/19 at 09:00; Stop 06/15/19 at 16:00 Hydromorphone HCl (Dilaudid) 0.4 mg PACU PRN IV MOD PAIN 4-6; Start 06/15/19 at 09:00; Stop 06/15/19 at 16:00 Hydromorphone HCl (Dilaudid) 0.6 mg PACU PRN IV SEVERE PAIN 7-10 Last administered on 06/15/19at 12:08; Admin Dose 0.6 MG; Start 06/15/19 at 09:00; Stop 06/15/19 at 16:00 Fentanyl (Sublimaze) 25 mcg PACU ORDER PRN IV MILD PAIN 1-3; Start 06/15/19 at 09:00; Stop 06/15/19 at 16:00 Fentanyl (Sublimaze) 50 mcg PACU ORDER PRN IV MOD PAIN 4-6 Last administered on 06/15/19at 12:23; Admin Dose 50 MCG; Start 06/15/19 at 09:00; Stop 06/15/19 at 16:00 Ondansetron HCl (Zofran Inj) 4 mg PACU ORDER PRN IV NAUSEA/VOMITING Last administered on 06/15/19at 11:31; Admin Dose 4 MG; Start 06/15/19 at 09:00; Stop 06/15/19 at 16:00 Metoclopramide HCl (Reglan) 10 mg PACU ORDER PRN IV NAUSEA/VOMITING; Start 06/15/19 at 09:00; Stop 06/15/19 at 16:00 Albuterol (Proventil 0.083% (Neb)) 2.5 mg PACU ORDER PRN HHN .WHEEZING; Start 06/15/19 at 09:00; Stop 06/15/19 at 16:00 Meperidine HCl (Demerol) 25 mg PACU ORDER PRN IV .RIGORS Last administered on 06/15/19 11:31; Admin Dose 25 MG; Start 06/15/19 at 09:00; Stop 06/15/19 at 16 :00 Diphenhydramine HCl (Benadryl) 25 mg PACU ORDER PRN IV .PRURITUS; Start 06/15/19 at 09:00; Stop 06/15/19 at 16:00 ALVA JUAREZ NP Jun 15, 2019 13:29
[2019-06-15] MEDS ORDERED: POTASSIUM CHLORIDE 20 MEQ POWDER FOR ORAL SOLN NGT ONE (13:30)
[2019-06-15] MEDS: HYDROCODONE/APAP (5/325) TAB PO PRN ×2 (14:20→19:16)
--- NOTE | 2019-06-15 14:21 | CONS ---
Assessment/Plan Assessment/Plan Hospital Course (Demo Recall) Patient is alert just came back from procedure she is alert looks comfortable and feels much better, no fevers overnight. WBC today 7.6, no shift no bands BUN 15 creatinine 0.74 Urine culture growing gram-negative rods Antimicrobials: Vancomycin, cefepime Physical examination: This is obese well-developed middle-aged woman who is alert in no distress. Head atraumatic normocephalic sclera nonicteric neck is supple chest rise symmetrical breath sounds clear heart S1-S2 abdomen soft bowel sounds present extremities without cyanosis Assessment: 1. Recurrent UTI 2. Obstructing left upper ureteral stone, status post cystoscopy removal of left nephrostomy tube and insertion of left ureteral JJ stent this afternoon 3. Obesity Plan: Patient is stable postprocedure were going to discontinue vancomycin, continue meropenem for now and await for final cultures. Follow urology recomme ndations Consultation Date/Type/Reason Admit Date/Time Jun 14, 2019 at 15:19 Initial Consult Date 06/14/19 Type of Consult id Requesting Provider: BRITNEY JOHNSON MD Date/Time of Note DATE: 06/15/19 TIME: 14:20 Exam/Review of Systems Exam Vitals Vital Signs Date Temp Pulse Resp B/P (MAP) Pulse Ox O2 O2 Flow FiO2 Time Delivery Rate 06/15/19 98.2 79 18 145/85 99 Room Air 12:36 (105) 06/15/19 6.0 11:10 Intake and Output 06/14/19 06/14/19 06/15/19 1515:00 23:00 07:00 IntakeIntake Total 1050 ml 650 ml OutputOutput Total 350 ml BalanceBalance 1050 ml 300 ml Results Result Diagram: 06/15/19 0438 06/15/19 0438 Results 24hrs Laboratory Tests Test 06/14/19 18:32 06/15/19 04:38 Prothrombin Time 12.5 Prothrombin Time Ratio 1.0 INR International Normalized Ratio 0.92 Activated Partial Thromboplast Time 31.4 White Blood Count 7.6 Red Blood Count 4.22 Hemoglobin 12.1 Hematocrit 37.9 Mean Corpuscular Volume 89.8 Mean Corpuscular Hemoglobin 28.7 L Mean Corpuscular Hemoglobin Concent 31.9 L Red Cell Distribution Width 12.7 Platelet Count 263 Mean Platelet Volume 10.3 Immature Granulocytes % 0.400 Neutrophils % 59.9 Lymphocytes % 29.3 Monocytes % 8.2 Eosinophils % 1.7 Basophils % 0.5 Nucleated Red Blood Cells % 0.0 Immature Granulocytes # 0.030 Neutrophils # 4.5 Lymphocytes # 2.2 Monocytes # 0.6 Eosinophils # 0.1 Basophils # 0.0 Nucleated Red Blood Cells # 0.0 Sodium Level 139 Potassium Level 3.4 L Chloride Level 107 Carbon Dioxide Level 26 Anion Gap 6 Blood Urea Nitrogen 15 Creatinine 0.74 Est Glomerular Filtrat Rate mL/min > 60 Glucose Level 90 Calcium Level 8.7 Phosphorus Level 3.6 Magnesium Level 1.9 Total Bilirubin 0.3 Direct Bilirubin 0.00 Indirect Bilirubin 0.3 Aspartate Amino Transf (AST/SGOT) 18 Alanine Aminotransferase (ALT/SGPT) 26 Alkaline Phosphatase 75 Total Protein 6.9 # Albumin 3.7 Globulin 3.20 Albumin/Globulin Ratio 1.15 Medications Medication Current Medications Sodium Chloride 1,000 ml @ 100 mls/hr Q10H IV Last administered on 06/14/19at 21:51; Admin Dose 100 MLS/HR; Start 06/14/19 at 17:05 IV Flush (NS 3 ml) 3 ml PER PROTOCOL IV ; Start 06/14/19 at 17:30 Ondansetron HCl (Zofran Inj) 4 mg Q6H PRN IV NAUSEA/VOMITING; Start 06/14/19 at 17:30 Acetaminophen (Tylenol Tab) 650 mg Q6H PRN PO .PAIN 1-3 OR TEMP; Start 06/14/19 at 17:30 Acetaminophen/ Hydrocodone Bitart ([place] (5/325)) 1 tab Q6H PRN PO .MOD PAIN 4- 6; Start 06/14/19 at 17:30 Pantoprazole (Protonix Tab) 40 mg DAILY@06 PO ; Start 06/15/19 at 06:00 Ketorolac Tromethamine (Toradol) 15 mg Q6 PRN IV PAIN Last administered on 06/15/19at 03:36; Admin Dose 15 MG; Start 06/14/19 at 17:30; Stop 06/17/19 at 17:29 Cefepime HCl 50 ml @ 100 mls/hr Q12 IVPB Last administered on 06/15/19at 08:39; Admin Dose 100 MLS/HR; Start 06/14/19 at 21:00 Vancomycin HCl (Vanco Iv Per Pharmacy) VANCOMYCIN PER PHARMACY PER PROTOCOL XX ; Start 06/14/19 at 17:30 Vancomycin/Sodium Chloride 250 ml @ 83.333 mls/ hr Q12 IVPB Last administered on 06/15/19at 11:59; Admin Dose 83.333 MLS/HR; Start 06/15/19 at 11:00 Hydromorphone HCl (Dilaudid) 0.2 mg PACU PRN IV MILD PAIN 1-3; Start 06/15/19 at 09:00; Stop 06/15/19 at 16:00 Hydromorphone HCl (Dilaudid) 0.4 mg PACU PRN IV MOD PAIN 4-6; Start 06/15/19 at 09:00; Stop 06/15/19 at 16:00 Hydromorphone HCl (Dilaudid) 0.6 mg PACU PRN IV SEVERE PAIN 7-10 Last administered on 06/15/19at 12:08; Admin Dose 0.6 MG; Start 06/15/19 at 09:00; Stop 06/15/19 at 16:00 Fentanyl (Sublimaze) 25 mcg PACU ORDER PRN IV MILD PAIN 1-3; Start 06/15/19 at 09:00; Stop 06/15/19 at 16:00 Fentanyl (Sublimaze) 50 mcg PACU ORDER PRN IV MOD PAIN 4-6 Last administered on 06/15/19at 12:23; Admin Dose 50 MCG; Start 06/15/19 at 09:00; Stop 06/15/19 at 16:00 Ondansetron HCl (Zofran Inj) 4 mg PACU ORDER PRN IV NAUSEA/VOMITING Last administered on 06/15/19at 11:31; Admin Dose 4 MG; Start 06/15/19 at 09:00; Stop 06/15/19 at 16:00 Metoclopramide HCl (Reglan) 10 mg PACU ORDER PRN IV NAUSEA/VOMITING; Start 06/15/19 at 09:00; Stop 06/15/19 at 16:00 Albuterol (Proventil 0.083% (Neb)) 2.5 mg PACU ORDER PRN HHN .WHEEZING; Start 06/15/19 at 09:00; Stop 06/15/19 at 16:00 Meperidine HCl (Demerol) 25 mg PACU ORDER PRN IV .RIGORS Last administered on 06/15/19at 11:31; Admin Dose 25 MG; Start 06/15/19 at 09:00; Stop 06/15/19 at 16:00 Diphenhydramine HCl (Benadryl) 25 mg PACU ORDER PRN IV .PRURITUS; Start 06/15/19 at 09:00; Stop 06/15/19 at 16:00 KHRIS GASPAR NP Jun 15, 2019 14:21
[2019-06-16] MEDS: SOD CHLORIDE 0.9% 1,000 ML IV SCH ×2 (01:28→09:05)
[2019-06-16] MEDS: HYDROCODONE/APAP (5/325) TAB PO PRN ×2 (01:28→11:45)
[2019-06-16 01:33] VITALS: BP 124/72; PULSE 63; RESP 16
[2019-06-16] MEDS: PANTOPRAZOLE (EC) 40 MG TAB PO SCH (06:56)
[2019-06-16 07:41] VITALS: BP 126/65; PULSE 81; RESP 18
[2019-06-16] MEDS: KETOROLAC 15 MG INJ IV PRN ×2 (07:46→14:39)
[2019-06-16] MEDS: CEFEPIME 1GM/50 ML (PMX) 50 ML IVPB SCH (08:47)
--- NOTE | 2019-06-16 10:30 | CONS ---
Assessment/Plan Assessment/Plan Hospital Course (Demo Recall) All noted, no acute changes Urine culture grew Proteus Antimicrobials: Cefepime Physical examination: This is obese well-developed middle-aged woman who is alert in no distress. Head atraumatic normocephalic sclera nonicteric neck is supple chest rise symmetrical breath sounds clear heart S1-S2 abdomen soft bowel sounds present extremities without cyanosis Assessment: 1. Recurrent UTI 2. Obstructing left upper ureteral stone, status post cystoscopy removal of left nephrostomy tube and insertion of left ureteral JJ stent this afternoon 3. Obesity Plan: Change abx to oral Levaquin to complete 8 more days. Follow urology recommendations Consultation Date/Type/Reason Admit Date/Time Jun 14, 2019 at 15:19 Initial Consult Date 06/14/19 Type of Consult id Requesting Provider: BRITNEY JOHNSON MD Date/Time of Note DATE: 06/16/19 TIME: 10:29 Exam/Review of Systems Exam Vitals Vital Signs Date Temp Pulse Resp B/P (MAP) Pulse Ox O2 O2 Flow FiO2 Time Delivery Rate 06/16/19 98.7 81 18 126/65 97 07:41 (85) 06/16/19 Room Air 01:33 06/15/19 6.0 11:10 Intake and Output 06/15/19 06/15/19 06/16/19 1515:00 23:00 07:00 IntakeIntake Total 1400 ml 1050 ml 1150 ml OutputOutput Total 1200 ml BalanceBalance 1400 ml 1050 ml -50 ml Results Result Diagram: 06/16/19 0433 06/16/19 0433 Results 24hrs Laboratory Tests Test 06/16/19 04:33 White Blood Count 7.8 Red Blood Count 4.09 L Hemoglobin 11.7 L Hematocrit 36.9 L Mean Corpuscular Volume 90.2 Mean Corpuscular Hemoglobin 28.6 L Mean Corpuscular Hemoglobin Concent 31.7 L Red Cell Distribution Width 12.9 Platelet Count 235 Mean Platelet Volume 10.1 Immature Granulocytes % 0.300 Neutrophils % 62.4 Lymphocytes % 27.6 Monocytes % 8.0 Eosinophils % 1.3 Basophils % 0.4 Nucleated Red Blood Cells % 0.0 Immature Granulocytes # 0.020 Neutrophils # 4.9 Lymphocytes # 2.2 Monocytes # 0.6 Eosinophils # 0.1 Basophils # 0.0 Nucleated Red Blood Cells # 0.0 Sodium Level 139 Potassium Level 4.0 Chloride Level 108 Carbon Dioxide Level 25 Anion Gap 6 Blood Urea Nitrogen 9 Creatinine 0.74 Est Glomerular Filtrat Rate mL/min > 60 Glucose Level 94 Calcium Level 8.6 Medications Medication Current Medications Sodium Chloride 1,000 ml @ 100 mls/hr Q10H IV Last administered on 06/16/19 01:28; Admin Dose 100 MLS/HR; Start 06/14/19 at 17:05 IV Flush (NS 3 ml) 3 ml PER PROTOCOL IV ; Start 06/14/19 at 17:30 Ondansetron HCl (Zofran Inj) 4 mg Q6H PRN IV NAUSEA/VOMITING; Start 06/14/19 at 17:30 Acetaminophen (Tylenol Tab) 650 mg Q6H PRN PO .PAIN 1-3 OR TEMP; Start 06/14/19 at 17:30 Acetaminophen/ Hydrocodone Bitart ([place] (5/325)) 1 tab Q6H PRN PO .MOD PAIN 4- 6 Last administered on 06/16/19at 01:28; Admin Dose 1 TAB; Start 06/14/19 at 17:30 Pantoprazole (Protonix Tab) 40 mg DAILY@06 PO Last administered on 06/16/19at 06:56; Admin Dose 40 MG; Start 06/15/19 at 06:00 Ketorolac Tromethamine (Toradol) 15 mg Q6 PRN IV PAIN Last administered on 06/16/19at 07:46; Admin Dose 15 MG; Start 06/14/19 at 17:30; Stop 06/17/19 at 17:29 Cefepime HCl 50 ml @ 100 mls/hr Q12 IVPB Last administered on 06/16/19at 08:47; Admin Dose 100 MLS/HR; Start 06/14/19 at 21:00 KHRIS GASPAR NP Jun 16, 2019 10:30
[2019-06-16] MEDS ORDERED: LEVOFLOXACIN 750 MG TABLET PO SCH (11:00)
--- NOTE | 2019-06-16 13:01 | RADRPT ---
Vent Rate: 65 bpm RR Interval: 920 msec MT Interval: 183 msec QRS Duration: 102 msec QT Interval: 415 msec QTC Interval: 433 msec P-R-T [place]: 51 - 28 - 35 degrees Sinus rhythm...normal P axis, V-rate 50- 99 Electronically Signed By: Tristan Jones
--- NOTE | 2019-06-16 13:53 | PN ---
Date/Time of Note Date/Time of Note DATE: 06/16/19 TIME: 13:51 Assessment/Plan VTE Prophylaxis Risk score (from Ns)>0 risk: 2 SCD applied (from Ns): Yes Pharmacological prophylaxis: NA/contraindicated Pharm contraindication: low risk/ambulating Lines/Catheters IV [facility]ter Type (from [facility] Peripheral IV Assessment/Plan Hospital Course 1. Recurrent urinary tract infection. The patient has history of hydronephrosis on the left side, status post nephrostomy tube placement and sten t in place. New UA is consistent with urinary tract infection and the patient also was growing Staph in the urine from [facility] concerning for infection. s/p nephrostomy removal, JJ stenting 2. History of kidney stones. 3. Right side kidney stone. 4. Obesity. 5. SOB Assessment/Plan -trop stat -pain is not controlled -ECG stat -if normal ambulate BID -d/c pending, wait dr Thorpe clearance Result Diagram: 06/16/19 0433 06/16/19 0433 Results 24hrs Laboratory Tests Test 06/16/19 04:33 White Blood Count 7.8 Red Blood Count 4.09 L Hemoglobin 11.7 L Hematocrit 36.9 L Mean Corpuscular Volume 90.2 Mean Corpuscular Hemoglobin 28.6 L Mean Corpuscular Hemoglobin Concent 31.7 L Red Cell Distribution Width 12.9 Platelet Count 235 Mean Platelet Volume 10.1 Immature Granulocytes % 0.300 Neutrophils % 62.4 Lymphocytes % 27.6 Monocytes % 8.0 Eosinophils % 1.3 Basophils % 0.4 Nucleated Red Blood Cells % 0.0 Immature Granulocytes # 0.020 Neutrophils # 4.9 Lymphocytes # 2.2 Monocytes # 0.6 Eosinophils # 0.1 Basophils # 0.0 Nucleated Red Blood Cells # 0.0 Sodium Level 139 Potassium Level 4.0 Chloride Level 108 Carbon Dioxide Level 25 Anion Gap 6 Blood Urea Nitrogen 9 Creatinine 0.74 Est Glomerular Filtrat Rate mL/min > 60 Glucose Level 94 Calcium Level 8.6 Subjective 24 Hr Interval Summary Respiratory: shortness of breath Genitourinary: flank pain (left) Musculoskeletal: other (weakness) Exam/Review of Systems Exam Vitals Vital Signs Date Temp Pulse Resp B/P (MAP) Pulse Ox O2 O2 Flow FiO2 Time Delivery Rate 06/16/19 98.7 81 18 126/65 97 07:41 (85) 06/16/19 Room Air 01:33 06/15/19 6.0 11:10 Intake and Output 06/15/19 06/15/19 06/16/19 1515:00 23:00 07:00 IntakeIntake Total 1400 ml 1050 ml 1150 ml OutputOutput Total 1200 ml BalanceBalance 1400 ml 1050 ml -50 ml Exam after procedure SOB, inability to walk farther than bathroom Eyes: anicteric, EOM's intact, no pallor Nose: no rhinorrhea Neck: supple, no thyromegaly, no carotid bruits Lungs: clear bilaterally, decreased. CVS: regular rate and rhythm, no murmurs Abdomen: soft, bowel sounds present, no hepatosplenomegally, no masses, no rebound or guarding. Rectal: differed. External genitalia: no lesions. Extremities: no edema, DP pulses are palpable Neuro: alert and oriented x 3 Gait: normal until bathroom Motor strength: 5+/5+ Sensory exam: normal Deep tendon reflexes: normal, Babisky reflexes are absent bilaterally Skin: left flank surg dressing Results Results 24hrs Laboratory Tests Test 06/16/19 04:33 White Blood Count 7.8 Red Blood Count 4.09 L Hemoglobin 11.7 L Hematocrit 36.9 L Mean Corpuscular Volume 90.2 Mean Corpuscular Hemoglobin 28.6 L Mean Corpuscular Hemoglobin Concent 31.7 L Red Cell Distribution Width 12.9 Platelet Count 235 Mean Platelet Volume 10.1 Immature Granulocytes % 0.300 Neutrophils % 62.4 Lymphocytes % 27.6 Monocytes % 8.0 Eosinophils % 1.3 Basophils % 0.4 Nucleated Red Blood Cells % 0.0 Immature Granulocytes # 0.020 Neutrophils # 4.9 Lymphocytes # 2.2 Monocytes # 0.6 Eosinophils # 0.1 Basophils # 0.0 Nucleated Red Blood Cells # 0.0 Sodium Level 139 Potassium Level 4.0 Chloride Level 108 Carbon Dioxide Level 25 Anion Gap 6 Blood Urea Nitrogen 9 Creatinine 0.74 Est Glomerular Filtrat Rate mL/min > 60 Glucose Level 94 Calcium Level 8.6 Medications Medication Current Medications Sodium Chloride 1,000 ml @ 100 mls/hr Q10H IV Last administered on 06/16/19at 01:28; Admin Dose 100 MLS/HR; Start 06/14/19 at 17:05 IV Flush (NS 3 ml) 3 ml PER PROTOCOL IV ; Start 06/14/19 at 17:30 Ondansetron HCl (Zofran Inj) 4 mg Q6H PRN IV NAUSEA/VOMITING; Start 06/14/19 at 17:30 Acetaminophen (Tylenol Tab) 650 mg Q6H PRN PO .PAIN 1-3 OR TEMP; Start 06/14/19 at 17:30 Acetaminophen/ Hydrocodone Bitart ([place] (5/325)) 1 tab Q6H PRN PO .MOD PAIN 4- 6 Last administered on 06/16/19at 11:45; Admin Dose 1 TAB; Start 06/14/19 at 17:30 Pantoprazole (Protonix Tab) 40 mg DAILY@06 PO Last administered on 06/16/19at 06:56; Admin Dose 40 MG; Start 06/15/19 at 06:00 Ketorolac Tromethamine (Toradol) 15 mg Q6 PRN IV PAIN Last administered on 06/16/19at 07:46; Admin Dose 15 MG; Start 06/14/19 at 17:30; Stop 06/17/19 at 17:29 Levofloxacin (Levaquin) 750 mg DAILY@06 PO Last administered on 06/16/19at 11:44; Admin Dose 750 MG; Start 06/16/19 at 11:00 ALVA JUAREZ NP Jun 16, 2019 13:53
[2019-06-16 14:00] VITALS: BP 128/79; PULSE 79; RESP 18
--- NOTE | 2019-06-16 16:14 | PDOCDIS ---
Discharge Instructions CONDITION [id number] Patient Condition: [id number] Stable HOME CARE INSTRUCTIONS: [id number] Diet Instructions: [id number] Low Fat /Cholesterol ACTIVITY: [id number] Activity Restrictions: [id number] Slowly Increase Activity FOLLOW UP/APPOINTMENTS Follow-up Plan f/u own pcp 1 wk,[facility] 1 wk BRITNEY JOHNSON MD Jun 16, 2019 16:14
--- NOTE | 2019-06-16 16:47 | QN ---
Documentation Comment [id number] BRITNEY JOHNSON MD Jun 16, 2019 16:47
--- NOTE | 2019-06-16 17:46 | DS ---
DATE OF ADMISSION: 06/14/2019 DATE OF DISCHARGE: HISTORY OF PRESENT ILLNESS: The patient is a 38-year-old female who was admitted with a history of k idney stone. The patient has a history of left-sided hydronephrosis, status post nephrostomy tube an d stent placement, history of Proteus UTI. The patient's initial showed recurrent urinary trac t infection, history of kidney stone. The patient has also has a urinary tract infection with gram-n egative karis Proteus mirabilis. The patient was seen by Dr. Taveras in infectious disease consultation , receiving antibiotic IV. The patient was seen by Dr. Rohan Mosley in consultation, underwent lef t ureteral JJ stent placement. The patient had cystoscopy, left ureteropyeloscopy, laser lithotripsy , removal of left nephrostomy tube, insertion of left ureteral JJ stent. Post-procedure, the patient required pain medication. The patient was cleared by Dr. Rohan Mosley to be discharged home with further followup and workup as an outpatient. DISCHARGE DIAGNOSES: Include the patient has: 1. Kidney stone, status post JJ stent placement and laser lithotripsy, pyeloscopy. 2. Proteus mirabilis urinary tract infection. 3. Anemia. 4. Obesity. 5. Hypokalemia. DISCHARGE MEDICATIONS: The patient was given prescription for: 1. Bisacodyl. 2. Hydrocodone. 3. Levofloxacin. 4. Protonix. FOLLOWUP: The patient is to follow up with PCP and Dr. Rohan Mosley as an outpatient. Dictated By: BRITNEY JOHNSON MD BS/NTS Conf#: [id number] DID#: [id number] CC: ROHAN MOSLEY MD; TOÁMS CASTRO;*EndCC*
--- NOTE | 2019-06-17 07:27 | PAC ---
Date/Time of Note Date/Time of Note DATE: 06/17/19 TIME: 07:27 Post-Anesthesia Notes Post-Anesthesia Note Last documented vital signs Vital Signs Date Temp Pulse Resp B/P (MAP) Pulse Ox O2 O2 Flow FiO2 Time Delivery Rate 06/16/19 98.5 79 18 128/79 97 14:00 (95) 06/16/19 Room Air 01:33 06/15/19 6.0 11:10 Activity: WNL Respiratory function: WNL Cardiovascular function: WNL Mental status: Baseline Pain reasonably controlled: Yes Hydration appropriate: Yes Nausea/Vomiting absent: Yes CARLOS QUINTANILLA Jun 17, 2019 07:27
== END 2019-06-16 17:40 | disposition home or self-care (01) | DRG 661 ==
LOC: E/R 11:27 → MS1 15:19
PROVIDERS: ADMIT Internal Medicine; ATTEND Internal Medicine
PROC: 0T778DZ Dilation of Left Ureter with Intraluminal Device, Via Natural or Artificial Opening Endoscopic (ICD-10-PCS; 2019-06-15)
PROC: 0T9B8ZX Drainage of Bladder, Via Natural or Artificial Opening Endoscopic, Diagnostic (ICD-10-PCS; 2019-06-15)
PROC: 0TP580Z Removal of Drainage Device from Kidney, Via Natural or Artificial Opening Endoscopic (ICD-10-PCS; 2019-06-15)
PROC: 0TC48ZZ Extirpation of Matter from Left Kidney Pelvis, Via Natural or Artificial Opening Endoscopic (ICD-10-PCS; principal; 2019-06-15 09:30)
DX: N13.6 Pyonephrosis (principal); E66.9 Obesity, unspecified; E87.6 Hypokalemia; D64.9 Anemia, unspecified; B96.4 Proteus (mirabilis) (morganii) as the cause of diseases classified elsewhere; Z68.31 Body mass index [BMI] 31.0-31.9, adult; Z87.440 Personal history of urinary (tract) infections; Z87.442 Personal history of urinary calculi; Z93.6 Other artificial openings of urinary tract status
CPT/HCPCS: 36415; 71045; 74018; 74019; 74176; 74430; 80048; 80053; 81001; 81025; 83605; 83690; 83735; 84100; 84484; 85025; 85610; 85730; 87086; 88300; 93005; 96361; 96374; C2617; J0692; J1170; J1885; J2001; J2175; J2405; J3010; J3370; J7030